=== PATIENT | female | born 1990 | race Caucasian/White ===

== ENCOUNTER 2023-02-27 11:18 | Emergency (ER) | payer OTHER ==
[~2023-02-27] VITALS: Ht 157.5 cm; Wt 60.0 kg
[2023-02-27 11:22] VITALS: BP 116/85; PULSE 92; RESP 18; TEMP 98; O2SAT 100
== END 2023-02-27 12:32 | disposition home or self-care (01) ==
LOC: ER 11:19
DX: M54.59 Other low back pain (principal); Z88.8 Allergy status to other drugs, medicaments and biological substances; V87.7XXA Person injured in collision between other specified motor vehicles (traffic), initial encounter; Y93.89 Activity, other specified; Y92.89 Other specified places as the place of occurrence of the external cause; Y99.8 Other external cause status
CPT/HCPCS: 99281